=== PATIENT | female | born 1930 | race Caucasian/White ===

== ENCOUNTER 2017-09-10 10:19 | Emergency (ER) | payer MEDICARE, OTHER ==
--- NOTE | 2017-09-10 10:56 | EDM.PDOC ---
ED HPI GENERAL MEDICAL PROBLEM - General Stated Complaint: PAWAN Time Seen by Provider: 09/10/17 10:19 Source of Information: Reports: Patient, Family History Limitations: Reports: No Limitations - History of Present Illness INITIAL COMMENTS - FREE TEXT/NARRATIVE: 87 y.o.w.f -former smoker-with a h/o ESRD, on peritoneal Dialysis, came with her family because she had a slurred speech and could not elevate her right arm as the daughter arrived at he patient's home. As the patient arrived here in the ED, the patient was basically in her usual state of health. She was able to lift her arms up for 10 sec. lift her legs up for 10 sec and had no drift. He tongue was deviated to the right side, however. EOMI, PEERL, Ox3. Pt did not have any pain or any acute medical issue. 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) Associated Symptoms: Reports: No Other Symptoms - Related Data Allergies Allergy/AdvReac Type Severity Reaction Status Date / Time latanoprost Allergy Cannot Verified 09/10/17 10:41 Remember Penicillins Allergy Edema Verified 04/17/17 10:22 Home Meds: Home Meds Loperamide HCl [Loperamide] 2 mg PO ASDIRECTED PRN 10/22/13 [History] amLODIPine [Norvasc] 5 mg PO DAILY 10/22/13 [History] Acetaminophen [Tylenol] 650 mg PO Q4H PRN 04/17/17 [History] Ascorbate Calcium [Vitamin C] 500 mg PO DAILY 04/17/17 [History] Bumetanide [Bumex] 2 mg PO BID 04/17/17 [History] Calcium Acetate [PhosLo] 667 mg PO TIDMEALS 04/17/17 [History] Docusate Sodium 100 mg PO ASDIRECTED PRN 04/17/17 [History] Ferrous Sulfate 325 mg PO BID 04/17/17 [History] Gentamicin [Gentamicin 0.1%] 1 applic TOP DAILY PRN 04/17/17 [History] Levothyroxine [Sythroid] 100 mcg PO DAILY 04/17/17 [History] Metoprolol Tartrate 75 mg PO BID 04/17/17 [History] Sodium Bicarbonate 650 mg PO DAILY 04/17/17 [History] Timolol Maleate [Timoptic 0.25%] 1 drop EYEBOTH DAILY 04/17/17 [History] Valsartan 320 mg PO DAILY 04/17/17 [History] Vit B Cmplx NO3/Fa/C/Biot/Zinc [Nephplex Rx] 1 each PO DAILY 04/17/17 [History] Diltiazem HCl [Cartia Xt] 120 mg 1200 09/10/17 [History] Ergocalciferol (Vitamin D2) [Vitamin D2] 50,000 units Q30D 09/10/17 [History] Lactulose 15 mg DAILY 09/10/17 [History] Magnesium Oxide [Magnesium] 400 mg DAILY 09/10/17 [History] Past Medical History HEENT History: Reports: Cataract, Glaucoma, Hard of Hearing Cardiovascular History: Reports: Afib, Heart Failure, High Cholesterol, Hypertension, SOB on Exertion Respiratory History: Reports: COPD, SOB Gastrointestinal History: Reports: Hemorrhoids Genitourinary History: Reports: Other (See Below) Other Genitourinary History: F[employer] ATTENDANT History: Reports: Musculoskeletal History: Reports: Osteoporosis Endocrine/Metabolic History: Reports: Hypoparathyroidism Hematologic History: Reports: Anemia, Iron Deficiency Immunologic History: Reports: Other (See Below) Other Immunologic History: HEPATITIS C Dermatologic History: Reports: Psoriasis, Other (See Below) Other Dermatologic History: TO SCALP - Infectious Disease History Infectious Disease History: Reports: Chicken Pox, Measles, Mumps, Other (See Below) Other Infectious Disease History: POLIO - Past Surgical History HEENT Surgical History: Reports: Cataract Surgery, Other (See Below) Other HEENT Surgeries/Procedures: BOTH EYES DONE Cardiovascular Surgical History: Reports: None GI Surgical History: Reports: Appendectomy, Cholecystectomy, Colonoscopy Endocrine Surgical History: Reports: None Musculoskeletal Surgical History: Reports: None Dermatological Surgical History: Reports: None, Other (See Below) Social & Family History - Family History Family Medical History: Noncontributory - Tobacco Use Smoking Status *Q: Former Smoker Years of Tobacco use: 12 Used Tobacco, but Quit: Yes Month/Year Tobacco Last Used: 1959 Second Hand Smoke Exposure: No - Caffeine Use Caffeine Use: Reports: Coffee Other Caffeine Use: 4 CUPS A DAY - Alcohol Use Days Per Week of Alcohol Use: 0 Number of Drinks Per Day: 2 Total Drinks Per Week: 0 - Recreational Drug Use Recreational Drug Use: No Drug Use in Last 12 Months: No ED ROS GENERAL - Review of Systems Review Of Systems: Unable To Obtain (poor historian) ED EXAM, NEURO - Physical Exam Exam: See Below Exam Limited By: No Limitations General Appearance: Alert, WD/WN, No Apparent Distress, Cachetic Eye Exam: Bilateral Eye: EOMI, Normal Fundi, PERRL Ears: Normal External Exam Nose: Normal Inspection Throat/Mouth: Normal Inspection, Normal Lips Head Exam: Atraumatic, Normocephalic Neck: Normal Inspection, Supple, Non-Tender, Full Range of Motion Respiratory/Chest: No Respiratory Distress, Decreased Breath Sounds (RLL of lung , H/O pleural effusion) Cardiovascular: Normal Peripheral Pulses, Irregularly Irregular (Rate 94) GI/Abdominal: Normal Bowel Sounds, Soft, Non-Tender (Female) Exam: Deferred Rectal (Female) Exam: Deferred Neurological: Alert, Normal Mood/Affect, Normal Dorsiflexion, CN II-XII Intact, Normal Plantar Flexion, Normal Gait (with help, baseline), No Motor/Sensory Deficits, Oriented x 3, Other (tongue was deviated to the right initially) Back Exam: Normal Inspection, Full Range of Motion Extremities: Normal Inspection, Normal Range of Motion, Non-Tender, No Pedal Edema, Normal Capillary Refill Psychiatric: Normal Affect, Normal Mood Skin Exam: Warm, Dry, Intact, Pallor EKG INTERPRETATION EKG Date: 09/10/17 Time: 10:55 Rhythm: A-Fib Rate (Beats/Min): 92 [place]: LAD-Left [place] Deviation P-Wave: Absent QRS: Normal ST-T: Normal QT: Prolonged Comparison: NA - No Prior EKG Course - Vital Signs Text/Narrative:: 87 y.o.w.f -former smoker-with a h/o ESRD, on peritoneal Dialysis, came with her family because she had a slurred speech and could not elevate her right arm as the daughter arrived at he patient's home. As the patient arrived here in the ED, the patient was basically in her usual state of health. She was able to lift her arms up for 10 sec. lift her legs up for 10 sec and had no drift. He tongue was deviated to the right side, however. EOMI, PEERL, Ox3. Pt did not have any pain or any acute medical issue. BP 116/64 Pulse 82 RR 18 Pulse ox 98% on RA Temp 36.7 PE: 87 y.o.w f, cachectic in her usual state of health, tongue deviated to the right, which is new. Imaging: CT head: No Bleed. MRI brain: No acute Disease, however there are hypodense areas in the distribution of the right and left interior carotid arteries. Official report is pending Labs: WBC Na 127 K 3.3 Cr. 6.1 BNP 98868 WBC 7.4 HGB 10.2 Cl 89 INR 0.98 GFR 7 Impression: TIA, On Peritoneal Dialysis. H/O CHF, HTN Tx: Pt was taken off ASA a few months ago by her Residential Real Estate Assistant Reexam: Pt was in her usual state of health on D/C home with her daughter Plan: D/C with instructions Last Recorded V/S: Last Vital Signs Temp 36.4 C 09/10/17 10:19 Pulse 76 09/10/17 10:19 Resp 18 09/10/17 15:05 BP 121/60 09/10/17 15:05 Pulse Ox 100 09/10/17 15:05 - Orders/Labs/Meds Orders: Active Orders 24 hr Category Date Time Status Ang Head wo Cont [MR] Stat Exams 09/10/17 11:00 Taken Brain wo Cont [MR] Stat Exams 09/10/17 11:00 Taken EKG 12 Lead [EK] Routine Ther 09/10/17 10:44 Ordered Labs: Laboratory Tests 09/10/17 09/10/17 09/10/17 Range/Units 11:00 11:00 11:00 WBC 7.5 (4.5-12.0) X10-3/uL RBC 3.18 L (3.23-5.20) x10(6)uL Hgb 10.2 L (11.5-15.5) g/dL Hct 30.2 (30.0-51.3) % MCV 94.9 (80-96) fL MCH 32.0 (27.7-33.6) pg MCHC 33.7 (32.2-35.4) g/dL RDW 12.3 (11.5-15.5) % Plt Count 311 (125-369) X10(3)uL MPV 6.7 L (7.4-10.4) fL Neut % (Auto) 50.4 (46-82) % Lymph % (Auto) 33.7 (13-37) % [place] % (Auto) 13.3 H (4-12) % Eos % (Auto) 1 (1.0-5.0) % Baso % (Auto) 2 (0-2) % Neut # (Auto) 3.8 (1.6-8.3) # Lymph # (Auto) 2.5 (0.6-5.0) # [place] # (Auto) 1.0 (0.0-1.3) # Eos # (Auto) 0.1 (0.0-0.8) # Baso # (Auto) 0.1 (0.0-0.2) # PT 9.9 (8.7-11.1) INR 0.98 (0.89-1.13) Sodium 127 L (135-145) mmol/L Potassium 3.3 L (3.5-5.3) mmol/L Chloride 89 L* (100-110) mmol/L Carbon Dioxide 29 (21-32) mmol/L BUN 39 H (7-18) mg/dL Creatinine 6.1 H* (0.55-1.02) mg/dL Est Cr Clr Drug Dosing 4.76 mL/min Estimated GFR (MDRD) 7 L (>60) BUN/Creatinine Ratio 6.4 L (9-20) Glucose 112 (80-116) mg/dL Calcium 8.1 L (8.6-10.2) mg/dL Creatine Kinase (60-160) IU/L Troponin I (<0.017-0.056) ng/mL NT-Pro-B Natriuret Pep (<=450) pg/mL 09/10/17 09/10/17 Range/Units 11:00 11:00 WBC (4.5-12.0) X10-3/uL RBC (3.23-5.20) x10(6)uL Hgb (11.5-15.5) g/dL Hct (30.0-51.3) % MCV (80-96) fL MCH (27.7-33.6) pg MCHC (32.2-35.4) g/dL RDW (11.5-15.5) % Plt Count (125-369) X10(3)uL MPV (7.4-10.4) fL Neut % (Auto) (46-82) % Lymph % (Auto) (13-37) % [place] % (Auto) (4-12) % Eos % (Auto) (1.0-5.0) % Baso % (Auto) (0-2) % Neut # (Auto) (1.6-8.3) # Lymph # (Auto) (0.6-5.0) # [place] # (Auto) (0.0-1.3) # Eos # (Auto) (0.0-0.8) # Baso # (Auto) (0.0-0.2) # PT (8.7-11.1) INR (0.89-1.13) Sodium (135-145) mmol/L Potassium (3.5-5.3) mmol/L Chloride (100-110) mmol/L Carbon Dioxide (21-32) mmol/L BUN (7-18) mg/dL Creatinine (0.55-1.02) mg/dL Est Cr Clr Drug Dosing mL/min Estimated GFR (MDRD) (>60) BUN/Creatinine Ratio (9-20) Glucose (80-116) mg/dL Calcium (8.6-10.2) mg/dL Creatine Kinase 32 L (60-160) IU/L Troponin I 0.028 (<0.017-0.056) ng/mL NT-Pro-B Natriuret Pep 14289 H* (<=450) pg/mL Departure - Departure Time of Disposition: 15:26 Disposition: Home, Self-Care 01 Condition: Good Clinical Impression: TIA (transient ischemic attack) Qualifiers: Transient cerebral ischemia type: unspecified Qualified Code(s): G45.9 - Transient cerebral ischemic attack, unspecified - Discharge Information Instructions: Transient Ischemic Attack, [id number] Referrals: Frandy Mares MD [Primary Care Provider] - Forms: ED Department Discharge Additional Instructions: Please continue your current meds, please follow up with your regular MD at clinic tomorrow, call for appt, please come back to the ER if your symptoms get worse acutely. - My Orders Last 24 Hours: My Active Orders 09/10/17 10:44 EKG 12 Lead [EK] Routine 09/10/17 11:00 Ang Head wo Cont [MR] Stat Brain wo Cont [MR] Stat - Assessment/Plan Last 24 Hours: My Active Orders 09/10/17 10:44 EKG 12 Lead [EK] Routine 09/10/17 11:00 Ang Head wo Cont [MR] Stat Brain wo Cont [MR] Stat
--- NOTE | 2017-09-10 12:29 | CT ---
INDICATION: CVA versus TIA symptoms. Slurred speech, right-sided weakness since [address] HEAD WITHOUT CONTRAST: Serial contiguous 2.5 and 5-mm sections were obtained through the brain without contrast, 09/10/2017, and compared with 07/14. Total Exam DLP = 949.36 mGy-cm. There is again no shift of midline structures. Ventricles are somewhat more prominent than on the previous study, suggesting progressive central atrophy. Decreased density areas are patchy throughout the white matter and are more prominent than on the previous study, compatible with progressive microvascular disease. Other cause of leukoencephalopathy cannot be excluded, however. Lacunar infarct is again noted in the left basal ganglia, with a possible very minimal lacunar infarct again noted at the base of the right basal ganglia also noted. Calcifications are noted in the internal carotid and vertebral arteries. No focal bleeding site or hematoma was identified. No definite cranial abnormality was seen. Opacification of a posterior ethmoidal air cell on the right is now seen of questionable significance. It could represent a retention cyst. Sinusitis is felt to be less likely, but cannot be excluded. There is thickening of the lining of another right ethmoidal air cell and small retention cyst in the right maxillary antrum. IMPRESSION: 1. No definite acute intracranial abnormality. 2. Progressive microvascular disease. 3. 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 4. Progressive central atrophy still relatively mild. 5. Lacunar infarcts basal ganglia. 6. Minimal changes in paranasal sinuses, but cannot entirely exclude sinusitis. MTDD
== END 2017-09-10 15:35 | disposition home or self-care (01) ==
LOC: FB.ED 10:19
DX: G45.9 Transient cerebral ischemic attack, unspecified (principal); I11.0 Hypertensive heart disease with heart failure; I50.9 Heart failure, unspecified; E78.00 Pure hypercholesterolemia, unspecified; Z88.0 Allergy status to penicillin; Z79.899 Other long term (current) drug therapy; Z87.891 Personal history of nicotine dependence
CPT/HCPCS: 36415; 70450; 70544; 70551; 80048; 82550; 83880; 84484; 85025; 85610; 93005; 99284